=== PATIENT | female | born 1965 | race Caucasian/White ===

== ENCOUNTER 2023-01-01 08:02 | Inpatient (IN) ==
[2023-01-01 08:24] LABS: POC Calcium, Ionized 1.02 (1.16-1.32); POC Creatinine 2.3 (0.6-1.2)
[2023-01-01] MEDS ORDERED: 0.9 % SODIUM CHLORIDE 1,000 ML IV ONE (08:24)
[2023-01-01] MEDS ORDERED: ONDANSETRON 4 MG/2 ML VIAL IV ONE (08:25)
[2023-01-01] MEDS ORDERED: fentaNYL 100 MCG/2 ML VIAL IV ONE (08:26)
[2023-01-01] MEDS ORDERED: DICYCLOMINE 20 MG/2 ML VIAL IM ONE (08:26)
[2023-01-01 09:06] LABS: Basophils # (Auto) 0.05 K/mcL (0.00-0.30); Basophils % (Auto) 0.6 % (0.0-2.0); Eosinophils # (Auto) 0.07 K/mcL (0.00-0.70); Eosinophils % (Auto) 0.9 % (0.0-7.0); Hematocrit 41.7 % (34.1-44.9); Hemoglobin 13.7 g/dL (11.2-15.7); Lymphocytes # (Auto) 1.35 K/mcL (1.50-4.80); Lymphocytes % (Auto) 16.6 % (15.5-49.0); Mean Cell Volume 84.2 fL (80.0-100.0); Mean Corpuscular HGB Conc 32.9 g/dL (31.0-36.0); Mean Platelet Volume 8.4 fL (8.8-12.5); Monocytes # (Auto) 1.13 K/mcL (0.10-0.90); Monocytes % (Auto) 13.9 % (1.0-12.0); Neutrophils % (Auto) 67.8 % (38.0-78.0); Platelet Count 870 K/mcL (140-440); RBC 4.95 M/mcL (3.59-5.38); Red Cell Distribution Width 13.2 % (11.5-14.5); WBC 8.1 K/mcL (4.5-11.0)
[2023-01-01 09:13] LABS: Albumin 5.1 gm/dL (3.2-5.2); Bilirubin,Direct 0.2 mg/dL (<0.3); Bilirubin,Total 1.2 mg/dL (0.1-1.0); Globulin 3.2 gm/dL (2.2-3.7)
[2023-01-01] MEDS: 0.9 % SODIUM CHLORIDE 1,000 ML IV SCH ×5 (11:05→21:20)
[2023-01-01] MEDS ORDERED: ONDANSETRON 4 MG/2 ML VIAL IV PRN (11:26)
[2023-01-01] MEDS: METOCLOPRAMIDE 10 MG/2 ML VIAL IV SCH ×2 (11:58→17:23)
[2023-01-01] MEDS: PANTOPRAZOLE 40 MG VIAL IV SCH ×2 (12:02→17:23)
[2023-01-01] MEDS: fentaNYL 100 MCG/2 ML VIAL IV PRN ×3 (12:08→20:23)
[2023-01-01] MEDS: ONDANSETRON 4 MG/2 ML VIAL IV PRN (13:34)
[2023-01-01] MEDS: METHYLNALTREXONE BROMIDE 12 MG/0.6 ML SYRINGE SQ SCH (13:42)
[2023-01-01] MEDS: 0.9 % SODIUM CHLORIDE 10 ML SYRINGE IV SCH ×2 (13:43→20:24)
[2023-01-01] MEDS: PYRIDOSTIGMINE BROMIDE 10 MG/2 ML AMPUL SC SCH ×2 (13:50→20:19)
[2023-01-01] MEDS: PROMETHAZINE 25 MG/ML VIAL IV PRN (14:35)
[2023-01-01] MEDS: LORazepam 2 MG/ML VIAL IV PRN (14:59)
[2023-01-02] MEDS: fentaNYL 100 MCG/2 ML VIAL IV PRN ×5 (00:40→20:48)
[2023-01-02] MEDS: METOCLOPRAMIDE 10 MG/2 ML VIAL IV SCH ×4 (00:40→17:27)
[2023-01-02] MEDS: 0.9 % SODIUM CHLORIDE 1,000 ML IV SCH ×5 (01:53→20:32)
[2023-01-02] MEDS: PYRIDOSTIGMINE BROMIDE 10 MG/2 ML AMPUL SC SCH ×4 (02:27→20:48)
[2023-01-02] MEDS: LORazepam 2 MG/ML VIAL IV PRN (03:08)
[2023-01-02] MEDS: 0.9 % SODIUM CHLORIDE 10 ML SYRINGE IV SCH ×3 (05:20→20:54)
[2023-01-02] MEDS: PANTOPRAZOLE 40 MG VIAL IV SCH ×2 (07:15→16:12)
[2023-01-02] MEDS: ONDANSETRON 4 MG/2 ML VIAL IV PRN ×2 (08:19→20:47)
[2023-01-02] MEDS ORDERED: METHYLNALTREXONE BROMIDE 12 MG/0.6 ML SYRINGE SQ SCH (09:00)
[2023-01-02] MEDS: METHYLNALTREXONE BROMIDE 12 MG/0.6 ML SYRINGE SQ SCH (09:40)
[2023-01-02] MEDS: ACETAMINOPHEN 1,000 MG/100 ML BAG IV PRN ×2 (11:24→21:19)
[2023-01-02] MEDS: PROMETHAZINE 25 MG/ML VIAL IV PRN (21:20)
[2023-01-03] MEDS: METOCLOPRAMIDE 10 MG/2 ML VIAL IV SCH ×4 (00:54→19:50)
[2023-01-03] MEDS: fentaNYL 100 MCG/2 ML VIAL IV PRN ×7 (00:54→22:35)
[2023-01-03] MEDS: LORazepam 2 MG/ML VIAL IV PRN (01:50)
[2023-01-03] MEDS: 0.9 % SODIUM CHLORIDE 1,000 ML IV SCH ×4 (01:56→13:57)
[2023-01-03] MEDS: PYRIDOSTIGMINE BROMIDE 10 MG/2 ML AMPUL SC SCH ×4 (03:44→19:49)
[2023-01-03] MEDS: 0.9 % SODIUM CHLORIDE 10 ML SYRINGE IV SCH ×3 (06:28→21:55)
[2023-01-03 06:46] LABS: Basophils # (Auto) 0.04 K/mcL (0.00-0.30); Basophils % (Auto) 0.7 % (0.0-2.0); Eosinophils # (Auto) 0.25 K/mcL (0.00-0.70); Eosinophils % (Auto) 4.2 % (0.0-7.0); Hematocrit 31.1 % (34.1-44.9); Hemoglobin 9.6 g/dL (11.2-15.7); Lymphocytes # (Auto) 1.42 K/mcL (1.50-4.80); Lymphocytes % (Auto) 23.8 % (15.5-49.0); Mean Cell Volume 89.6 fL (80.0-100.0); Mean Corpuscular HGB Conc 30.9 g/dL (31.0-36.0); Mean Platelet Volume 8.5 fL (8.8-12.5); Monocytes # (Auto) 1.05 K/mcL (0.10-0.90); Monocytes % (Auto) 17.6 % (1.0-12.0); Neutrophils % (Auto) 53.2 % (38.0-78.0); Platelet Count 633 K/mcL (140-440); RBC 3.47 M/mcL (3.59-5.38)
[2023-01-03 06:56] LABS: Erythrocyte Sedimentation Rate 13 mm/hr (0-30)
[2023-01-03] MEDS: PANTOPRAZOLE 40 MG VIAL IV SCH ×2 (06:58→18:03)
[2023-01-03 07:06] LABS: ALT/SGPT 17 U/L (<40); AST/SGOT 19 U/L (<32); Albumin 3.4 gm/dL (3.2-5.2); Albumin/Globulin Ratio 1.4 (1.0-2.3); Alkaline Phosphatase 68 U/L (39-117); Bilirubin,Direct < 0.2 mg/dL (0-0.3); Bilirubin,Total 0.4 mg/dL (0.1-1.0); Blood Urea Nitrogen 5 mg/dL (6-20); Calcium 8.4 mg/dL (8.6-10.4); Carbon Dioxide 19 mmol/L (22-30); Chloride 105 mmol/L (96-108); Globulin 2.4 gm/dL (2.2-3.7); Glomerular Filtration Rate 108; Glucose 103 mg/dL (70-105); Lactate Dehydrogenase 152 U/L (135-225); Triglycerides 141 mg/dL (<150); Uric Acid 3.3 mg/dL (2.5-8.0)
[2023-01-03] MEDS: ACETAMINOPHEN 1,000 MG/100 ML BAG IV PRN (07:07)
[2023-01-03] MEDS: METHYLNALTREXONE BROMIDE 12 MG/0.6 ML SYRINGE SQ SCH (08:49)
[2023-01-03] MEDS ORDERED: fentaNYL 100 MCG/2 ML VIAL IV SCH (10:45)
[2023-01-03] MEDS: DICYCLOMINE 20 MG/2 ML VIAL IM SCH ×2 (13:03→18:03)
[2023-01-03] MEDS: POTASSIUM PHOSPHATE 40 MEQ in DEXTROSE 5% IN WATER 500 ML IV SCH ×2 (14:39→21:54)
[2023-01-03] MEDS: POLYETHYLENE GLYCOL 3350 17 GM PACKET PO SCH ×2 (16:08→21:55)
[2023-01-04] MEDS: LORazepam 2 MG/ML VIAL IV PRN
[2023-01-04] MEDS: PROMETHAZINE 25 MG/ML VIAL IV PRN (02:33)
[2023-01-04] MEDS: PYRIDOSTIGMINE BROMIDE 10 MG/2 ML AMPUL SC SCH ×3 (02:34→15:00)
[2023-01-04] MEDS: fentaNYL 100 MCG/2 ML VIAL IV PRN ×4 (02:42→11:56)
[2023-01-04] MEDS: METOCLOPRAMIDE 10 MG/2 ML VIAL IV SCH ×3 (05:50→11:56)
[2023-01-04] MEDS: DICYCLOMINE 20 MG/2 ML VIAL IM SCH ×3 (05:50→12:47)
[2023-01-04 06:51] LABS: Basophils # (Auto) 0.05 K/mcL (0.00-0.30); Basophils % (Auto) 0.6 % (0.0-2.0); Eosinophils # (Auto) 0.23 K/mcL (0.00-0.70); Eosinophils % (Auto) 2.9 % (0.0-7.0); Hematocrit 34.1 % (34.1-44.9); Hemoglobin 10.5 g/dL (11.2-15.7); Lymphocytes # (Auto) 1.46 K/mcL (1.50-4.80); Lymphocytes % (Auto) 18.5 % (15.5-49.0); Mean Cell Volume 88.1 fL (80.0-100.0); Mean Corpuscular HGB Conc 30.8 g/dL (31.0-36.0); Mean Platelet Volume 8.5 fL (8.8-12.5); Monocytes # (Auto) 1.18 K/mcL (0.10-0.90); Neutrophils % (Auto) 62.4 % (38.0-78.0); Platelet Count 692 K/mcL (140-440); RBC 3.87 M/mcL (3.59-5.38); Red Cell Distribution Width 12.8 % (11.5-14.5); WBC 7.9 K/mcL (4.5-11.0)
[2023-01-04] MEDS: PANTOPRAZOLE 40 MG VIAL IV SCH (07:01)
[2023-01-04] MEDS: 0.9 % SODIUM CHLORIDE 10 ML SYRINGE IV SCH ×2 (07:01→15:00)
[2023-01-04] MEDS: POLYETHYLENE GLYCOL 3350 17 GM PACKET PO SCH (08:53)
[2023-01-04] MEDS: 0.9 % SODIUM CHLORIDE 1,000 ML IV SCH (11:44)
[2023-01-04] MEDS ORDERED: HYDROmorphone 0.5 MG/0.5 ML SYRINGE IV SCH (14:03)
== END 2023-01-04 15:50 | disposition home or self-care (01) | DRG 394 ==
LOC: MEDSUR 08:02 → ED 08:02 → MEDSUR 12:30 → OBSVTOIN 12:54
PROVIDERS: ADMIT Family Medicine Adult Medicine; ATTEND Family Medicine Adult Medicine